=== PATIENT | female | born 1945 | race Caucasian/White ===

== ENCOUNTER 2016-11-08 17:58 | Emergency (ER) | payer MEDICARE, BC ==
[~2016-11-08] VITALS: Ht 157.5 cm; Wt 56.0 kg
[2016-11-08 18:06] VITALS: BP 156/95; PULSE 97; RESP 24; O2SAT 97
[2016-11-08] MEDS ORDERED: TRAM50TA PO (18:11)
[2016-11-08] MEDS ORDERED: SODIUM CHLORIDE 0.9% FLUSH 10 ML FLUSH IVF PRN (18:15)
[2016-11-08] MEDS ORDERED: SODIUM CHLORID 0.9% 500 ML INJ 500 ML IV ONE (18:30)
[2016-11-08] MEDS ORDERED: LORazepam 2 MG/ML VIAL IV PUSH ONE (18:30)
--- NOTE | 2016-11-08 18:31 | PD ---
HPI Chief Complaint: Altered Mental Status Time Seen by Provider: 18:18 Travel History International Travel<30 days: No Contact w/Intl Traveler<30days: No Traveled to known affect area: No History of Present Illness HPI Patient comes in by EMS for altered mental status. EMS reports patient has been crying but will give a reason as to why. EMS does report the patient was at the pool had been drinking. Reports patient's only medical history is chronic low back pain and she is on tramadol for this. Patient is crying on exam but will answer questions appropriately. Patient states she is not sure why she is crying. Patient denies any feelings of sadness, depression, headache , chest pain, shortness of breath, numbness or tingling anywhere, change in bowel or bladder, nausea, vomiting, abdominal pain, fevers, or neck pain. Patient reports she is visiting form [place]. Patient does admit to drinking alcohol today and states that she drinks somewhat regularly. Patient's reports [place] she suddenly stood up, waved to him, and was having difficulty walking out of the river. He states that he try to help his out she was crying, laughing, and he was unable to console her. Denies anything like this in the past. States patient did have 2 drinks of gin today which is not a lot for her if she does drink somewhat regularly. [facility] Past Medical History Musculoskeletal: Yes (chronic back pain, sciatica) ?: Not Past Surgical History Hysterectomy: Yes Other Surgery: Yes (back surgery) Social History Alcohol Use: Yes Tobacco Use: No Substance Use: No Allergies-Medications (Allergen,Severity, Reaction): Coded Allergies: Codeine (Verified Allergy, Severe, 11/08/16) Penicillin (Verified Allergy, Severe, 11/08/16) Reported Meds & Prescriptions Reported Meds & Active Scripts Active Reported Tramadol (Tramadol HCl) 50 Mg Tab 50 Mg PO Q6H PRN Review of Systems Except as stated in HPI: all other systems reviewed are Neg Physical Exam Narrative GENERAL: Well-developed, well nourished, crying on exam, and non-ill appearing. SKIN: Focused skin assessment warm and dry. HEAD: Atraumatic. Normocephalic. EYES: Pupils equal and round. EOMI. No scleral icterus. No injection or drainage. ENT: No nasal bleeding or discharge. Mucous membranes pink and moist. NECK: Trachea midline. No JVD. Supple. No nuclear rigidity. CARDIOVASCULAR: Regular rate and rhythm. No murmur appreciated. RESPIRATORY: No accessory muscle use. No respiratory distress. Clear to auscultation. Breath sounds equal bilaterally. GASTROINTESTINAL: Abdomen soft, non-tender, nondistended. Hepatic and splenic margins not palpable. Normal bowel sounds 4. No pulsatile mass. MUSCULOSKELETAL: No obvious deformities. No clubbing. No cyanosis. No edema. Full range of motion. Shoulder:FROM equal BL with passive flexion, extension, Abduction, Adduction, internal/external rotation, and pronation/supination. Sensation equal BL deltoid muscles. Pulses equal BL distal to injury. Capillary refill less than 2 seconds distal to injury and equal BL. FROM distal to injury and equal BL. Strength distal to injury equal BL. NV intact distal to injury equal BL. Flexion and extension of thumb equal BL. Equal strength and movement with abduction/adductions of BL fingers. Sock Drier strength equal BL. NEUROLOGICAL: Awake and alert to person, place, year, and president. No obvious cranial nerve deficits. Motor grossly within normal limits. Normal speech. Equal rise and fall of eyebrows bilaterally. Smile symmetrical equal bilaterally. No deviation of the tongue. PSYCHIATRIC: Insight and judgment normal. Data Data Last Documented VS Vital Signs Date Time Temp Pulse Resp B/P Pulse Ox O2 Delivery O2 Flow Rate FiO2 11/08/16 18:06 97 24 156/95 97 Orders Electrocardiogram (11/08/16 ) Electrocardiogram (11/08/16 18:) Ammonia (11/08/16 18:) Complete Blood Count With Diff (11/08/16 18:) Comprehensive Metabolic Panel (11/08/16 18:) Creatine Kinase (Cpk) (11/08/16 18:14) Prothrombin Time / Inr (Pt) (11/08/16 18:) Act Partial Throm Time (Ptt) (11/08/16 18:) Troponin I (11/08/16 18:) Urinalysis - C+S If Indicated (11/08/16 18:) Chest, Single Ap (11/08/16 18:14) Ct Brain W/O Iv Contrast(Rout) (11/08/16 18:14) Blood Glucose (11/08/16 18:14) Ecg Monitoring (11/08/16 18:14) Iv Access Insert/Monitor (11/08/16 18:14) Oximetry (11/08/16 18:14) Sodium Chloride 0.9% Flush (Ns Flush) (11/08/16 18:15) Alcohol (Ethanol) (11/08/16 18:14) Drug Screen, Random Urine (11/08/16 18:20) Sodium Chlorid 0.9% 500 Ml Inj (Ns 500 M (11/08/16 18:30) Lorazepam Inj (Ativan Inj) (11/08/16 18:30) Labs Laboratory Tests Test 11/08/16 11/08/16 11/08/16 18:20 18:40 19:30 White Blood Count 6.1 TH/MM3 Red Blood Count 4.84 MIL/MM3 Hemoglobin 15.9 GM/DL Hematocrit 44.9 % Mean Corpuscular Volume 92.9 FL Mean Corpuscular Hemoglobin 32.8 PG Mean Corpuscular Hemoglobin 35.3 % Concent Red Cell Distribution Width 12.7 % Platelet Count 180 TH/MM3 Mean Platelet Volume 8.2 FL Neutrophils (%) (Auto) 44.3 % Lymphocytes (%) (Auto) 47.2 % Monocytes (%) (Auto) 7.2 % Eosinophils (%) (Auto) 0.8 % Basophils (%) (Auto) 0.5 % Neutrophils # (Auto) 2.7 TH/MM3 Lymphocytes # (Auto) 2.9 TH/MM3 Monocytes # (Auto) 0.4 TH/MM3 Eosinophils # (Auto) 0.0 TH/MM3 Basophils # (Auto) 0.0 TH/MM3 CBC Comment DIFF FINAL Differential Comment Prothrombin Time 10.5 SEC Prothromb Time International 1.0 RATIO Ratio Activated Partial 24.8 SEC Thromboplast Time Sodium Level 143 MEQ/L Potassium Level 3.4 MEQ/L Chloride Level 106 MEQ/L Carbon Dioxide Level 26.9 MEQ/L Anion Gap 10 MEQ/L Blood Urea Nitrogen 12 MG/DL Creatinine 1.04 MG/DL Estimat Glomerular Filtration 53 ML/MIN Rate Random Glucose 104 MG/DL Calcium Level 9.1 MG/DL Total Bilirubin 0.8 MG/DL Aspartate Amino Transf 24 U/L (AST/SGOT) Alanine Aminotransferase 28 U/L (ALT/SGPT) Alkaline Phosphatase 71 U/L Total Creatine Kinase 111 U/L Troponin I LESS THAN 0.02 NG/ML Total Protein 7.3 GM/DL Albumin 4.4 GM/DL Ethyl Alcohol Level 133 MG/DL Ammonia 21 MCMOL/L Urine Color COLORLESS Urine Turbidity CLEAR Urine pH 6.0 Urine Specific Craig 1.002 Urine Protein NEG mg/dL Urine Glucose (UA) NEG mg/dL Urine Ketones NEG mg/dL Urine Occult Blood NEG Urine Nitrite NEG Urine Bilirubin NEG Urine Urobilinogen LESS THAN 2.0 MG/DL Urine Leukocyte Esterase NEG Urine Squamous Epithelial <1 /hpf Cells Urine Bacteria NONE /hpf Urine Mucus FEW /lpf Microscopic Urinalysis Comment CATH-CULT NOT IND Urine Opiates Screen NEG Urine Barbiturates Screen NEG Urine Amphetamines Screen NEG Urine Benzodiazepines Screen NEG Urine Cocaine Screen NEG Urine Cannabinoids Screen NEG MDM Medical Decision Making Medical Screen Exam Complete: Yes Emergency Medical Condition: Yes Interpretation(s) EKG reviewed by Dr. Vance shows sinus rhythm with ventricular rate of 98. No STEMI. CT the head and chest x-ray were obtained and read by the radiologist shows: No acute disease or process. Differential Diagnosis TIA, CVA, acute coronary syndrome, dehydration, alcohol intoxication, electrolyte abnormality, pneumonia, depression, other Narrative Course Patient in no obvious distress upon re-evaluation. All pertinent laboratory/ Radiology result(s) discussed with patient/family. Discussed patient with Dr. Pike prior to discharge, the patient's chart and is in agreement with plan of care and disposition. Any questions/concerns in reference to patient diagnosis/ condition discussed and clarified prior to patient's discharge. Reinforced sheer importance of close follow up with patient's primary physician or primary care clinic. Instructed patient to return to ED immediately, if symptoms return/ worsen. Pt showed understanding of above instructions. Further instructions and recommendations were detailed in discharge paperwork. Pt ambulated without difficulty out of ED at discharge with her . Diagnosis Primary Impression: Alcohol intoxication Qualified Code: F10.920 - Alcohol intoxication, uncomplicated Patient Instructions: Alcohol Intoxication (ED), General Instructions Additional Instructions: Follow-up with your primary care physician next week for reevaluation. Cut back on alcohol intake. Return to the emergency department if symptoms get worse. Disposition: 01 DISCHARGE HOME Condition: Stable Gato Yousif November 08, 2016 18:31
[2016-11-08 18:33] LABS: AUTOMATED NEUTROPHIL # 2.7 TH/MM3 (1.8-7.7); BASOPHIL % 0.5 % (0.0-2.0); EOSINOPHIL % 0.8 % (0.0-4.0); HEMATOCRIT 44.9 % (35.0-46.0); HEMO FLAGS DIFF FINAL; LYMPH % 47.2 % (9.0-44.0); LYMPHOCYTE # 2.9 TH/MM3 (1.0-4.8); MEAN CELL VOLUME 92.9 FL (80.0-100.0); MEAN CORPUSCULAR HEMOGLOBIN 32.8 PG (27.0-34.0); MEAN CORPUSCULAR HGB CONC 35.3 % (32.0-36.0); MONO % 7.2 % (0.0-8.0); NEUT % 44.3 % (16.0-70.0); PLATELET COUNT 180 TH/MM3 (150-450); RED BLOOD COUNT 4.84 MIL/MM3 (4.00-5.30); RED CELL DISTRIBUTION WIDTH 12.7 % (11.6-17.2); WHITE BLOOD COUNT 6.1 TH/MM3 (4.0-11.0)
--- NOTE | 2016-11-08 18:35 | RADRPT ---
EXAM DATE/TIME: 11/08/2016 18:25 [facility] COMPARISON: No previous studies available for comparison. INDICATIONS : Altered mental status. RADIATION DOSE: 56.35 CTDIvol (mGy) MEDICAL HISTORY : None SURGICAL HISTORY : Hysterectomy. ENCOUNTER: Initial ACUITY: 1 day PAIN SCALE: 0/10 LOCATION: cranial TECHNIQUE: Multiple contiguous axial images were obtained of the head. Using automated exposure control and adj ustment of the mA and/or kV according to patient size, radiation dose was kept as low as reasonably a chievable to obtain optimal diagnostic quality images. FINDINGS: CEREBRUM: The ventricles are normal for age. No evidence of midline shift, mass lesion, hemorrhage or acute in farction. No extra-axial fluid collections are seen. POSTERIOR FOSSA: The cerebellum and brainstem are intact. The 4th ventricle is midline. The cerebellopontine angle i s unremarkable. EXTRACRANIAL: The visualized portion of the orbits is intact. SKULL: The calvaria is intact. No evidence of skull fracture. CONCLUSION: Negative for acute process. Yung Mazariegos MD FACR on November 08, 2016 at 18:32 Board Certified Radiologist. This report was verified electronically.
[2016-11-08 18:43] LABS: APTT (PATIENT) 24.8 SEC (24.3-30.1); PROTHROMBIN TIME - PATIENT 10.5 SEC (9.8-11.6)
--- NOTE | 2016-11-08 18:45 | RADRPT ---
EXAM DATE/TIME: 11/08/2016 18:34 [facility] COMPARISON: No previous studies available for comparison. INDICATIONS : Dizziness. MEDICAL HISTORY : None. SURGICAL HISTORY : None. ENCOUNTER: Initial ACUITY: 1 day PAIN SCORE: 0/10 LOCATION: Bilateral chest FINDINGS: A single view of the chest demonstrates the lungs to be symmetrically aerated without evidence of mas s, infiltrate or effusion. The cardiomediastinal contours are unremarkable. Osseous structures are intact. CONCLUSION: No acute disease. Yung Mazariegos MD FACR on November 08, 2016 at 18:43 Board Certified Radiologist. This report was verified electronically.
[2016-11-08 19:57] LABS: ANION GAP 10 MEQ/L (5-15); BICARBONATE 26.9 MEQ/L (21.0-32.0); BLOOD UREA NITROGEN 12 MG/DL (7-18); CHLORIDE 106 MEQ/L (98-107); GLOMERULAR FILTRATION RATE 53 ML/MIN (>89); POTASSIUM 3.4 MEQ/L (3.5-5.1); SODIUM (NA) 143 MEQ/L (136-145)
[2016-11-08 20:02] LABS: BLOOD, URINE NEG (NEG); GLUCOSE,URINE NEG (NEG); KETONE, URINE NEG (NEG); MUCUS URINE FEW /lpf (OCC); NITRITE,URINE NEG (NEG); SQUAMOUS EPITHELIAL CELL URINE <1 /hpf (0-5); URINE COLOR COLORLESS (YELLW/STRAW)
[2016-11-08 20:04] LABS: AMPHETAMINE, URINE NEG (NEG); BARBITURATES, URINE NEG (NEG); COCAINE, URINE NEG (NEG)
[2016-11-08 20:05] LABS: COMMENT (UR) CATH-CULT NOT IND; CULTURE IF INDICATED CATH CULTURE NOT IND
[2016-11-08 20:06] LABS: ALKALINE PHOSPHATASE 71 U/L (45-117); ALT (GPT) 28 U/L (10-53); AST (GOT) 24 U/L (15-37); CREATINE KINASE 111 U/L (26-192); TOTAL BILIRUBIN ADULT 0.8 MG/DL (0.2-1.0)
--- NOTE | 2016-11-09 14:53 | EKG ---
Date Performed: 11/08/2016 Time Performed: 18:14:17 PTAGE: 71 years EKG: Sinus rhythm LOW QRS VOLTAGE IN EXTREMITY LEADS MODERATE ST DEPRESSION ABNORMAL ECG Anterior ST depression may be exacerbated by heart attack, but consider ischemia. PREVIOUS TRACING : 11/08/2016 18.13 DOCTOR: César Mack Interpretating Date/Time 11/10/2016 08:24:33
== END 2016-11-08 20:42 | disposition home or self-care (01) ==
LOC: NEPE 17:58
DX: F10.120 Alcohol abuse with intoxication, uncomplicated (principal); M54.5 Low back pain; R45.83 Excessive crying of child, adolescent or adult; Y90.6 Blood alcohol level of 120-199 mg/100 ml; R94.31 Abnormal electrocardiogram [ECG] [EKG]
CPT/HCPCS: 70450; 71010; 80053; 80307; 81001; 82140; 82550; 84484; 85025; 85610; 85730; 93005; 96361; 96374; 99285; J2060; J7040